=== PATIENT | male | born 1940 | race Caucasian/White ===

== ENCOUNTER → 2017-07-25 | Outpatient (CLI) | payer MEDICARE ==
--- NOTE | 2017-07-25 14:26 | RADIOLOGY IMAGING REPORT ---
[place] [facility] [place] Brett Love : 1940 MR: [id number] V: [id number] EXAM DATE: ORDERING PHYSICIAN: CLIFFORD LAZARO TECHNOLOGIST: Location: [facility] [place] Patient: Brett Love : 1940 Visit/Account:[id number] Date of Sevice: 07/25/2017 CAROTID HISTORY: Left carotid bruit COMPARISON: None. FINDINGS: Grayscale, duplex and color Doppler interrogation of the extracranial carotid and vertebral arteries was performed bilateral. On the right, peak systolic velocities within the common and internal carotid arteries are 126 and 10 1 cm/sec respectively. There is a moderate amount of plaque at the right carotid bulb extending into the right internal and external carotid arteries. Antegrade flow within the common, internal and ex ternal carotid arteries as well as vertebral artery. ICA/CCA ratio 0.8. On the left, peak systolic velocities within the common and internal carotid arteries are 138 and 280 cm/sec respectively. There is a moderate amount of plaque at the left carotid bulb extending into t he small left internal and external carotid arteries. Antegrade flow within the common, internal and external carotid arteries as well as vertebral artery. ICA/CCA ratio 2. IMPRESSION: There is a moderate amount of plaque at both carotid bulbs extending into the proximal internal and e xternal carotid arteries. Elevated peak systolic velocity in the left internal carotid artery is gre ater than the 70% stenosis. Velocity criteria are extrapolated from diameter data as defined by the Society of [employer] [place] [facility] Consensus Conference Radiology 2003; 229;340-346 Report Dictated By: Eden Correa MD at 07/25/2017 1:53 PM Report E-Signed By: Eden Correa MD at 07/25/2017 2:23 PM WSN:[email or web address]
== END ==
LOC: US 12:23
PROVIDERS: ATTEND Family Medicine
DX: I65.23 Occlusion and stenosis of bilateral carotid arteries (principal)
CPT/HCPCS: 93880